=== PATIENT | male | born 1950 | race Caucasian/White ===

== ENCOUNTER 2016-12-09 11:25 | Observation (INO) | payer MEDICARE, BC, OTHER ==
--- NOTE | ~2016-12-09 | DS ---
Discharge Summary [facility] [address] [place]. [address] NAME: JOSE M BERG : 48 STATUS : DIS Ajit PAT#: [id number] AGE: 66 ADM/REG DATE : 12/09/16 MR#: [id number] REPORT SERV DATE: 12/11/16 DICTATED BY: JAH LALA DATE: 12/10/16 REPORT STATUS : Draft TRANSCRIBED BY: MODL DATE: 12/10/16 ADMISSION DATE: 12/09/2016 DISCHARGE DATE: 12/10/2016 DISCHARGE DIAGNOSES: 1. Metabolic encephalopathy, currently resolved and back to baseline. 2. Metabolic acidosis, currently resolved. 3. Chronic kidney disease, currently at stage III or IV, creatinine of 2.25 currently. 4. Seizure disorder, stable at this time. 5. Hypertension, controlled. 6. History of cerebrovascular accident, stable. 7. Hyperlipidemia, stable. 8. Anemia, stable. 9. Type 2 diabetes mellitus. 10.Prosthetic aortic valve. 11.Chronic pain syndrome. 12.Chronic left bundle-branch block. 13.Essential tremor. 14.Benign prostatic hypertrophy with last PSA of about 7.2. CONSULTANTS DURING THIS HOSPITALIZATION: None. INVASIVE PROCEDURES DONE DURING THIS HOSPITALIZATION: None. BRIEF HISTORY OF PRESENT ILLNESS: The patient is a 66-year-old white male, admitted to the hospital with complaints of altered mental status, lethargy, and decreased responsiveness, so he was admitted. For detailed history and physical exam, please see note dictated by Dr. Kai Haskins on 12/09/2016. HOSPITAL COURSE: After being admitted to the hospital, this patient noted to have significant urinary retention. He had a straight catheterization done and that seemed to have resolved his urinary retention with IV fluids and just monitoring. His creatinine came down to 2.2. His altered mental status resolved. His metabolic acidosis corrected and there was no further anion gap. His bicarbonate came up to about 23. Today, he is feeling well. He is fully awake, alert, and he is oriented. He is sluggish in his response, but that seems to be his baseline due to his CVA. He otherwise is back to baseline and is being returned back to [facility], where he normally resides in the long-term skilled unit. DISCHARGE DISPOSITION: Back to skilled unit. DISCHARGE ACTIVITY: As tolerated. DISCHARGE DIET: Low sodium, 1800-calorie [employer] diet. DISCHARGE MEDICATIONS: Coreg CR 80 mg once daily, clonidine 0.1 mg every eight hours p.r.n., Lexapro 20 mg once daily, Pepcid 20 mg once daily, iron 325 mg once daily, gabapentin 600 mg Discharge Summary [facility] [address] [place]. [address] NAME: JOSE M BERG : 48 STATUS : DIS Ajit PAT#: [id number] AGE: 66 ADM/REG DATE : 12/09/16 MR#: [id number] REPORT SERV DATE: 12/11/16 DICTATED BY: JHA LALA DATE: 12/10/16 REPORT STATUS : Draft TRANSCRIBED BY: RANJIT DATE: 12/10/16 three times daily, Glucotrol 10 mg twice daily, hydralazine 10 mg every eight hours with Levemir 15 units subcutaneously every 12 hours. Humulin R sliding scale. Keppra 500 mg twice daily. Tradjenta 5 mg once daily, melatonin 6 mg once at bedtime, Zofran 4 mg every six hours p.r.n., Percocet 5/325 one tablet every four hours p.r.n., OxyContin 10 mg CR twice daily, MiraLAX one packet p.o. p.r.n. for constipation, pravastatin 80 mg p.o. once at bedtime, Mysoline 25 mg once at bedtime, Flomax 0.4 mg twice daily, Coumadin 7.5 mg once daily. DISCHARGE FOLLOWUP: With physicians at the halfway facility. About 30 minutes spent planning this patient's discharge, reconciling medications and documenting this discharge. JABIER/RANJIT Jah Lala M.D. / [id number] CC: Jah Lala M.D. [facility]
--- NOTE | ~2016-12-09 | HP ---
History And Physical [facility] [address] [place]. [address] NAME: JOSE M BERG : 48 STATUS : ADM Ajit PAT#: [id number] AGE: 66 ADM/REG DATE : 12/09/16 MR#: [id number] REPORT SERV DATE: 12/09/16 DICTATED BY: LAURA CORONA DATE: 12/09/16 REPORT STATUS : Draft TRANSCRIBED BY: MODL DATE: 12/09/16 DATE OF ADMISSION: 12/09/2016 CHIEF COMPLAINT: Altered. HISTORY OF PRESENT ILLNESS: The patient is a 66-year-old male, prior paraplegic after CVA with seizure history, diabetes, CKD stage 3 to 4, who presents after having decreased responsiveness over the weekend and today. The patient had initial workup and concern for possible CVA with negative CT of the head. He had no acute changes in medications, but has had decreased p.o. intake. The patient has had diarrhea over the last two weeks since [facility] and there has been a GI bug going around at facility. Symptoms have been constant, moderate severity. He does have mild lower abdominal pressure, kind of chronic cramping that does not radiate. He had low-grade fever last night. No nausea or vomiting. No chills or shortness of breath or chest pains. No wheezing. There are no worsening symptoms or relieving symptoms. Symptoms are improved currently after the patient had a Rivera catheter placed and subsequently removed. REVIEW OF SYSTEMS: CONSTITUTIONAL: Noted for fevers. No chills. EYES: No eye pain or visual changes. ENT: No sore throat or congestion, but did have mild sinuses. NEURO: He did have increased confusion, but is awake and responsive. SKIN: No rashes or bruising, but does have dry skin. RESPIRATORY: No shortness of breath or cough. CV: No chest pain or palpitations. GI: He does have diarrhea, but no constipation. No nausea or vomiting. : No dysuria or hematuria reported. MUSCULOSKELETAL: Chronic left hip pain. No arthralgias, above baseline. ENDO: Increased fatigue. No polyuria. HEME: No bleeding or bruising. IMMUNOLOGIC: Does have seasonal allergies. PSYCH: Mild confusion and decreased responsiveness, but no hallucinations or anxiety reported. PAST MEDICAL HISTORY: Hypertension, seizure disorder, CVA history, CKD stage 3 to 4, hyperlipidemia, anemia, insulin-dependent diabetes type 2. Additionally, stroke was in 2007 and required shelter placement. Prosthetic aortic valve. Chronic anemia and thrombocytopenia. Chronic pain, on opioids. Chronic left bundle branch with tremor, BPH, elevated PSA history. SURGICAL HISTORY: Aortic valve with inguinal hernia. 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 with three children, all at bedside. No smoking, alcohol, or illicits. Lives at shelter. FAMILY HISTORY: Mother with a stroke. Kidney disease in father and coronary artery History And Physical [address] [address] NAME: JOSE M BERG : 48 STATUS : ADM Ajit PAT#: [id number] AGE: 66 ADM/REG DATE : 12/09/16 MR#: [id number] REPORT SERV DATE: 12/09/16 DICTATED BY: LAURA CORONA DATE: 12/09/16 REPORT STATUS : Draft TRANSCRIBED BY: RANJIT DATE: 12/09/16 disease. ALLERGIES: TO MORPHINE AND DEMEROL. CURRENT MEDICATIONS: Coreg, Catapres, Lexapro, Pepcid, iron sulfate, Neurontin glipizide, hydralazine, Levemir, Keppra, Tradjenta, melatonin, Zofran, Percocet, OxyContin, MiraLAX, Pravachol, primidone, and Flomax. PHYSICAL EXAMINATION: VITAL SIGNS: The patient's blood pressure is 115/46, temperature 98.5, pulse 84, respirations 15, O2 saturations 94%. GENERAL: Currently in no acute distress, but does appear slightly ill appearing. EYES: No scleral icterus. EOMI. ENT: Nares patent. Tongue midline. Dry mucous membranes. RESPIRATORY: Clear to auscultation. No wheezes or rales. CV: Regular rate. No pedal edema. Cap refill less than 2 seconds. GI: Soft, nontender. Central obesity. Nondistended. No rebound. : Deferred. MUSCULOSKELETAL: Moves extremities, although does have old CVA effects on the left side, pretty significant with contracture of left hand. Decreased ability to move the left leg, but is able to move the leg. LYMPH: No cervical or supraclavicular lymphadenopathy. HEME: No bleeding or bruising. NEURO: Left-sided somewhat paraplegia, but does able to withdraw to stimuli and able to lift leg slightly. Left arm is contractured. PSYCH: Appropriate mood and affect. PERTINENT LABS: Brain without contrast, large region of encephalomalacia related to old right MCA distribution infarct. No acute infarct or hemorrhage. UDS negative. Urinalysis grossly within normal limits. BNP mildly elevated at 429.8. CMP: Procalcitonin 0.09, sodium 143, potassium 3.6, bicarb 22, BUN 34 and creatinine 2.53, glucose of 142. LFTs within normal limits. Tylenol level 3.7. Negative illicit. Negative alcohol. Portable chest: Shallow inspiration with venous congestion mild. His pH is 7.27, pCO2 of 48, pO2 of 1.01, bicarb 21.3. Lactate 0.7. CBC: WBC count 9.4, hemoglobin and hematocrit are 10.6 and 32, platelets 168, INR 2.5. ASSESSMENT AND PLAN: 1. Acute encephalopathy. 2. Metabolic acidosis. 3. Chronic kidney disease, stage 3 to 4. 4. Diabetes, insulin dependent. 5. Hypertension. 6. Prior CVA and seizure history. 7. Prosthetic aortic valve. 8. Chronic left bundle branch. PLAN: History And Physical [address] [address] NAME: JOSE M BERG : 48 STATUS : ADM Ajit PAT#: [id number] AGE: 66 ADM/REG DATE : 12/09/16 MR#: [id number] REPORT SERV DATE: 12/09/16 DICTATED BY: LAURA CORONA DATE: 12/09/16 REPORT STATUS : Draft TRANSCRIBED BY: MODJoesph DATE: 12/09/16 1. For acute encephalopathy, mental status appears improving after I and O cath. He has had two weeks of diarrhea. We will check stool studies, current infection workup, procalcitonin, lactase, WBC count. Negative UA. No signs of infection on chest x-ray. CT negative. Tox screen negative. Outpatient ammonia was noted to be elevated, unclear as to cause, we will repeat and recheck. We will check hepatitis panel. If negative stool studies and elevated ammonia levels, will have lactulose started. 2. Metabolic acidosis. Repeat ABG in a.m. Lactate, Tylenol, salicylates okay. Does have chronic CKD. 3. Chronic kidney disease stage 3 or 4, we will monitor. 4. Diabetes type 2. Sliding scale insulin and decreased dose of long-acting due to decreased mental status overall. 5. Hypertension, we will monitor, currently acceptable. 6. Prior CVA. He does require pressure mattress at home or at a facility. No signs of acute stroke at this time. 7. Prosthetic aortic valve. He does have INR, which is at goal, however, need to confirm warfarin dosing. 8. Chronic left bundle-branch block, appears stable. We will monitor troponins. No reported chest pain, but does have mildly elevated BNP. We will check echocardiogram. All questions answered to the patient at bedside. DISPOSITION: Pending response and further workup. DDN/MODL Laura Corona MD / [id number] CC: Gasper Villanueva M.D.
[2016-12-09 11:11] LABS: BASOPHILS 0.2 %; BASOPHILS ABSOLUTE 0.02 10/3/uL (0.0-0.16); EOSINOPHILS 1.1 %; HEMOGLOBIN 10.6 g/dL (13.6-17.8); IMMATURE GRANULOCYTES 1.4 %; IMMATURE GRANULOCYTES ABSOLUTE 0.13 10/3/uL (0.0-0.11); LYMPHOCYTES 15.8 %; LYMPHOCYTES ABSOLUTE 1.49 10/3/uL (0.67-4.30); MEAN CORPUS HGB CONC 33.1 g/dL (32.0-36.0); MEAN CORPUSCULAR HEMOGLOB 28.1 pg (26.0-34.0); MEAN CORPUSCULAR VOLUME 84.9 fL (80-100); MEAN PLATELET VOLUME 9.6 fL (9.2-13.0); MONOCYTES 8.3 %; MONOCYTES ABSOLUTE 0.78 10/3/uL (0.21-1.20); NEUTROPHILS 73.2 %; NEUTROPHILS ABSOLUTE 6.91 10/3/uL (2.02-8.40); PLATELET COUNT 160 10/3/uL (150-400); RBC DISTRIBUTION WIDTH 16.9 % (12.0-16.0); RED CELL COUNT 3.77 10/6/uL (4.7-6.1)
[2016-12-09 11:14] LABS: ER CBC TAT 0 Hrs 08 Mins; MANUAL DIFF NO %; WHITE BLOOD CELLS 9.4 10/3/uL (4.5-10.5)
[2016-12-09 11:17] LABS: INTERNATIONAL NORMAL RATI 2.5 UNITS (-); PROTIME (NOT ORD) 26.9 SEC (12.0-14.5)
[2016-12-09 11:18] LABS: PARTIAL THROMBO TIME 45.3 SEC (22.5-37.2)
[2016-12-09 11:24] LABS: A/G RATIO 0.8 (0.7-1.9); ALBUMIN 3.3 G/DL (3.5-5.0); ALKALINE PHOSPHATASE 73 U/L (45-117); BUN (BLOOD UREA NITROGEN) 34 MG/DL (6-23); CALCIUM, SERUM 8.4 MG/DL (8.5-10.4); CHLORIDE, SERUM 110 MMOL/L (96-112); CO2 (CARBON DIOXIDE) 22 MMOL/L (24-34); CREATININE 2.53 MG/DL (0.70-1.30); GFR AFRICAN AMERICAN 29 ML/MIN (>=60); GFR NON AFRICAN AMERICAN 25 ML/MIN (>=60); GLOBULIN 4.3 G/DL (2.5-4.1); GLUCOSE, SERUM 142 MG/DL (60-99); POTASSIUM, SERUM 3.6 MMOL/L (3.5-5.3); SGOT(AST) 12 U/L (5-40); SGPT(ALT) 17 U/L (5-65); SODIUM, SERUM 143 MMOL/L (135-148); TOTAL BILIRUBIN 0.4 MG/DL (0-1.2); TOTAL PROTEIN 7.6 G/DL (6.0-8.5)
[~2016-12-09 11:25] MED LIST: APRES25 PO; APRES50 PO; BARRIER CREAM TOP; BUSPAR10 PO; C1 PO; CAT1 PO; COREG CR80 MG PO; COREG25 PO; COUMADIN4 MG PO; COUMADIN7.5 MG PO; COZ50 PO; COZAAR100 MG PO; DEPAKOT250 PO; DEPASPRINK PO; FERROUS SULF325 M1 PO; FLOMAX4 PO; FLORASTOR250 MG PO; GLUCAGON SC; GLUCOTRO10 PO; GLUCXL10 PO; HUMULIN R1 ML SC; HYDROCHLOROT50 MG PO; KEPPRA500 PO; L20 PO; L40 PO; LANTUS SC; LAS20I IM; LEVEMFLXPN SC; LEXAPRO20 PO; MELA3 PO; NEUR300 PO; NEUR600 PO; NORV10 PO; NYSTOP100000 MG TOP; OXYCON10 PO; OXYCON20 PO; PAXIL40 MG PO; PCET PO; PR12.5 PO; PR12.5R PR; PRAVACHOL80 MG PO; PRENATAL VITAMIN PO; PRILO PO; PRIM50B PO; TRADJENTA5 MG PO
[2016-12-09 11:30] LABS: BE (BASE EXCESS) -5.6 MEQ/L (0 +/- 2.5); INSTRUMENT SERIAL # 8087; PCO2 (CO2 TENSION) 48 MMHG (35-45); PO2 (O2 TENSION) 101 MMHG (79-93); pH 7.27 (7.37-7.43)
[2016-12-09 11:30] LABS: LACTATE 0.7 MMOL/L (0.3-2.4)
[2016-12-09 11:31] LABS: ALLENS TEST Pos; CARBOXYHEMOGLOBIN 1.7 % (0-3); DEVICE NC; HCO3 (ACTUAL BICARBONATE) 21.3 MEQ/L (23-27); HEMOBLOGIN CONTENT 10.9 G/DL (14-18); METHEMOGLOBIN 0.3 % (0-3); O2 CONTENT 14.7 VOL% (18-24); SAMPLE Arterial
[2016-12-09 11:46] LABS: ACETAMINOPHEN LEVEL (TYLENOL) 3.7 MCG/ML (10.0-20.0)
[2016-12-09 11:47] LABS: ALCOHOL < 3 MG/DL (0); SALICYLATE < 1.7 MG/DL (-)
[2016-12-09 11:58] LABS: PROCALCITONIN 0.09 ng/mL (<0.5)
[2016-12-09 12:29] LABS: ASCORBIC ACID (UR NOT ORDER) NEG (NEG); BILIRUBIN, URINE NEGATIVE (NEG); ER URINALYSIS TAT 0 Hrs 14 Mins; KETONE, URINE NEGATIVE (NEG); LEUKOCYTE ESTERASE(NOT OR NEG (NEG); NITRITE (URINE) NEG (NEG); WBC (NOT ORDERED) (RFLEX) < 1 (0-5)
[2016-12-09 12:47] LABS: AMPHETAMINES (NOT ORD) NEG (NEG); BARBITURATES (NOT ORDERED NEG (NEG); BENZODIAZEPINES (NOT ORD) NEG (NEG); CANNABINOIDS (THC) NEG (NEG); COCAINE (NOT ORDERED) NEG (NEG); OPIATES NEG (NEG); PHENCYCLIDINE(PCP) NEG (NEG); TRICYCLICS NEG (NEG)
[2016-12-09] MEDS ORDERED: LEXAPRO20 PO (15:09)
[2016-12-09] MEDS ORDERED: GLUCOTRO10 PO (15:10)
[2016-12-09] MEDS ORDERED: HUMULIN R1 ML SC (15:10)
[2016-12-09] MEDS ORDERED: FERROUS SULF325 M1 PO (15:11)
[2016-12-09] MEDS ORDERED: TRADJENTA5 MG PO (15:11)
[2016-12-09] MEDS ORDERED: LEVEMIR SC (15:11)
[2016-12-09] MEDS ORDERED: MELA3 PO (15:12)
[2016-12-09] MEDS ORDERED: OXYCON10 PO (15:12)
[2016-12-09] MEDS ORDERED: COREG CR80 MG PO (15:12)
[2016-12-09] MEDS ORDERED: KEPPRA500 PO (15:13)
[2016-12-09] MEDS ORDERED: PEP20 PO (15:13)
[2016-12-09] MEDS ORDERED: FLOMAX4 PO (15:13)
[2016-12-09] MEDS ORDERED: PRAVACHOL80 MG PO (15:13)
[2016-12-09] MEDS ORDERED: HYDRALAZINE100 MG PO (15:14)
[2016-12-09] MEDS ORDERED: NEUR600 PO (15:14)
[2016-12-09] MEDS ORDERED: PRIM50B PO (15:14)
[2016-12-09] MEDS ORDERED: CAT1 PO (15:15)
[2016-12-09] MEDS ORDERED: MIRALAX POWDER1 PKT PO (15:15)
[2016-12-09] MEDS ORDERED: ZOFRAN4 PO (15:16)
[2016-12-09] MEDS ORDERED: PCET PO (15:16)
[2016-12-09] MEDS ORDERED: COUMADIN7.5 MG PO (15:34)
[2016-12-09 19:45] LABS: TROPONIN I <0.02 NG/ML (<0.05)
[2016-12-09 19:47] LABS: FREE T4 1.09 NG/DL (0.76-1.46)
[2016-12-09 19:48] LABS: ULTRASENSITIVE TSH 0.765 MCIU/ML (0.358-3.740)
[2016-12-09 20:39] LABS: PROCALCITONIN 0.09 ng/mL (<0.5)
[2016-12-10 06:15] LABS: BASOPHILS 0.3 %; BASOPHILS ABSOLUTE 0.02 10/3/uL (0.0-0.16); EOSINOPHILS ABSOLUTE 0.16 10/3/uL (0.0-0.53); HEMATOCRIT 30.9 % (40.0-51.0); HEMOGLOBIN 10.1 g/dL (13.6-17.8); IMMATURE GRANULOCYTES 1.5 %; IMMATURE GRANULOCYTES ABSOLUTE 0.12 10/3/uL (0.0-0.11); LYMPHOCYTES 20.6 %; LYMPHOCYTES ABSOLUTE 1.61 10/3/uL (0.67-4.30); MEAN CORPUS HGB CONC 32.7 g/dL (32.0-36.0); MEAN CORPUSCULAR HEMOGLOB 27.7 pg (26.0-34.0); MEAN CORPUSCULAR VOLUME 84.9 fL (80-100); MEAN PLATELET VOLUME 9.7 fL (9.2-13.0); MONOCYTES 8.8 %; MONOCYTES ABSOLUTE 0.69 10/3/uL (0.21-1.20); NEUTROPHILS 66.8 %; NEUTROPHILS ABSOLUTE 5.21 10/3/uL (2.02-8.40); PLATELET COUNT 145 10/3/uL (150-400); RBC DISTRIBUTION WIDTH 16.6 % (12.0-16.0); RED CELL COUNT 3.64 10/6/uL (4.7-6.1); WHITE BLOOD CELLS 7.8 10/3/uL (4.5-10.5)
[2016-12-10 06:17] LABS: MANUAL DIFF NO %
[2016-12-10 06:19] LABS: INTERNATIONAL NORMAL RATI 2.7 UNITS (-); PROTIME (NOT ORD) 28.5 SEC (12.0-14.5)
[2016-12-10 06:34] LABS: A/G RATIO 0.7 (0.7-1.9); ALKALINE PHOSPHATASE 65 U/L (45-117); CALCIUM, SERUM 8.1 MG/DL (8.5-10.4); CHLORIDE, SERUM 104 MMOL/L (96-112); CO2 (CARBON DIOXIDE) 23 MMOL/L (24-34); CREATININE 2.25 MG/DL (0.70-1.30); GFR AFRICAN AMERICAN 34 ML/MIN (>=60); GFR NON AFRICAN AMERICAN 29 ML/MIN (>=60); GLOBULIN 4.2 G/DL (2.5-4.1); GLUCOSE, SERUM 132 MG/DL (60-99); POTASSIUM, SERUM 3.4 MMOL/L (3.5-5.3); SGOT(AST) 16 U/L (5-40); SGPT(ALT) 18 U/L (5-65); TOTAL BILIRUBIN 0.4 MG/DL (0-1.2); TOTAL PROTEIN 7.2 G/DL (6.0-8.5); TROPONIN I <0.02 NG/ML (<0.05)
[2016-12-10 06:35] LABS: BUN (BLOOD UREA NITROGEN) 38 MG/DL (6-23); SODIUM, SERUM 136 MMOL/L (135-148)
[2016-12-10 06:52] LABS: ALLENS TEST Pos; BE (BASE EXCESS) -4.2 MEQ/L (0 +/- 2.5); CARBOXYHEMOGLOBIN 1.1 % (0-3); HCO3 (ACTUAL BICARBONATE) 22.1 MEQ/L (23-27); HEMOBLOGIN CONTENT 9.7 G/DL (14-18); INSTRUMENT SERIAL # 8083; METHEMOGLOBIN 0.3 % (0-3); O2 CONTENT 12.4 VOL% (18-24); OPERATOR ID 17589; PCO2 (CO2 TENSION) 46 MMHG (35-45); PO2 (O2 TENSION) 68 MMHG (79-93); SAMPLE Arterial
[2016-12-10 07:27] LABS: ALLENS TEST Pos; BE (BASE EXCESS) -4.8 MEQ/L (0 +/- 2.5); CARBOXYHEMOGLOBIN 1.2 % (0-3); HCO3 (ACTUAL BICARBONATE) 21.3 MEQ/L (23-27); HEMOBLOGIN CONTENT 9.8 G/DL (14-18); INSTRUMENT SERIAL # 8083; METHEMOGLOBIN 0.4 % (0-3); O2 CONTENT 12.7 VOL% (18-24); OPERATOR ID 30013; PCO2 (CO2 TENSION) 43 MMHG (35-45); PO2 (O2 TENSION) 75 MMHG (79-93); SAMPLE Arterial; pH 7.31 (7.37-7.43)
[2016-12-10 14:50] LABS: INTERNATIONAL NORMAL RATI 2.8 UNITS (-); PROTIME (NOT ORD) 29.6 SEC (12.0-14.5)
== END 2016-12-10 17:52 ==
LOC: ER 11:25 → CDU1 15:30
PROVIDERS: Emergency Medicine; Hospitalist; Internal Medicine; Student in an Organized Health Care Education/Training Program
DX: G93.41 Metabolic encephalopathy (principal); E87.2 Acidosis; I12.9 Hypertensive chronic kidney disease with stage 1 through stage 4 chronic kidney disease, or unspecified chronic kidney disease; E11.22 Type 2 diabetes mellitus with diabetic chronic kidney disease; N18.4 Chronic kidney disease, stage 4 (severe); G40.909 Epilepsy, unspecified, not intractable, without status epilepticus; Z86.73 Personal history of transient ischemic attack (TIA), and cerebral infarction without residual deficits; E78.5 Hyperlipidemia, unspecified; D63.1 Anemia in chronic kidney disease; Z95.2 Presence of prosthetic heart valve; G89.4 Chronic pain syndrome; I44.7 Left bundle-branch block, unspecified; G25.0 Essential tremor; N40.0 Benign prostatic hyperplasia without lower urinary tract symptoms; D69.6 Thrombocytopenia, unspecified; Z98.890 Other specified postprocedural states; Z82.3 Family history of stroke; Z84.1 Family history of disorders of kidney and ureter; Z82.49 Family history of ischemic heart disease and other diseases of the circulatory system; Z88.5 Allergy status to narcotic agent; Z79.84 Long term (current) use of oral hypoglycemic drugs; Z79.4 Long term (current) use of insulin; Z79.891 Long term (current) use of opiate analgesic; Z79.899 Other long term (current) drug therapy
CPT/HCPCS: 36600; 70450; 71010; 80053; 80305; 80307; 81001; 82140; 82805; 82962; 83605; 83735; 83880; 84145; 84439; 84443; 84484; 85025; 85610; 85730; 87040; 93005; 96374; 96376; 97166-GO; 99291; A9270-GY; C8929; G0378; G8987-CL-GO; G8988-CL-GO; G8989-CL-GO; J1170; Q9957